=== PATIENT | female | born 1980 | race African-American/Black ===

== ENCOUNTER 2017-08-15 09:40 | Emergency (ER) | payer OTHER | END 2017-08-15 10:58 | disposition home or self-care (01) | LOC: M ED 09:40 | DX: J06.9 Acute upper respiratory infection, unspecified (principal); B34.9 Viral infection, unspecified | CPT/HCPCS: 87880 ==

== ENCOUNTER → 2019-10-02 | Outpatient (CLI) | payer OTHER ==
[~2019-10-02] MED LIST: FLON1SPR; MOBI15TA PO; MUCI600T37 PO; RITA20TA PO; SUDA30TA8 PO; ZANA2CAP PO
--- NOTE | 2019-10-02 14:13 | REPMRS ---
Patient History The patient states she had a clinical breast exam in 07/2019. No known family history of cancer. Taking hormonal contraceptives for 3 months. Digital Woman Screen Mammo: October 02, 2019 - Exam #: [id number] Bilateral CC and MLO view(s) were taken. Technologist: Cayla Villanueva, Technologist No prior studies available for comparison. FINDINGS: The breast tissue is heterogeneously dense. This may lower the sensitivity of mammography. There is no evidence of dominant mass, architectural distortion, or grouped microcalcification typical of malignancy. Assessment: BI-RADS/ACR category 1 mammogram. Negative Mammogram. Recommendation Routine screening mammogram of both breasts in 1 year (for women over age 40). This patient's Lifetime Breast Cancer RIsk is estimated at 8.5 %. This mammogram was interpreted with the aid of an FDA-approved computer-aided dectection system. Electronically Signed By: Alexandre Lion MD 10/02/19 [id number]
== END ==
LOC: M WHC 13:00
PROVIDERS: ATTEND Family Medicine
DX: Z12.31 Encounter for screening mammogram for malignant neoplasm of breast (principal)

== ENCOUNTER 2020-07-20 11:42 | Day surgery (SDC) | payer OTHER ==
[~2020-07-20] VITALS: Ht 170.2 cm; Wt 81.2 kg
[~2020-07-20 11:42] MED LIST changes: +AMIT50TA PO; +ESCI10TA2 PO; +HYDR-4570 PO; +MAGN250T7 PO; +MECL1TAB31 PO; +NOXI1TAB PO; +NS 1,000 ML IV ONE; +OMEP-221; +PRAZ1CAP PO; +RIBO400T PO; +RITA5TAB PO
[2020-07-20] MEDS ORDERED: LIDOCAINE 2% 100MG/5ML SDV (FOR ANES.) As Ordered ONE (12:31)
[2020-07-20] MEDS ORDERED: propofoL 200 MG/20 ML VIAL As Ordered ONE (12:31)
[2020-07-20] MEDS ORDERED: fentaNYL 100 MCG/2 ML INJECTION (J3010) As Ordered ONE (13:02)
--- NOTE | 2020-07-20 13:25 | ROOR ---
Patient Name: Dacia Willett Procedure Date: 07/20/2020 1:08 PM Date of : 1980 Age: 40 Room: [facility] Gender: Female Note Status: Finalized Procedure: Upper Endoscopy + Biopsies Indications: Heartburn, Failure to respond to medical treatment, Exclusion of Andrews's esophagus Providers: Pineda Heller MD Referring MD: JOAQUIN NUÑEZ MD Requesting Provider: Medicines: Monitored Anesthesia Care Complications: No immediate complications. Procedure: Pre-Anesthesia Assessment: - The heart rate, respiratory rate, oxygen saturations, blood pressure, adequacy of pulmonary ventilation, and response to care were monitored throughout the procedure. The Endoscope was introduced through the mouth, and advanced to the second part of duodenum. The upper GI endoscopy was accomplished without difficulty. The patient tolerated the procedure well. Findings: The Z-line was variable and was found 40 cm from the incisors. Multiple biopsies were obtained with cold forceps for evaluation to rule out Andrews's Esophagus randomly at the gastroesophageal junction. No other significant abnormalities were identified in a careful examination of the stomach. The exam of the duodenum was otherwise normal. Impression: - Z-line variable, 40 cm from the incisors. - Multiple biopsies were obtained at the gastroesophageal junction. - The examination was otherwise normal. Recommendation: - Patient has a contact number available for emergencies. The signs and symptoms of potential delayed complications were discussed with the patient. Return to normal activities tomorrow. Written discharge instructions were provided to the patient. - High fiber diet. - Discharge patient to home. - Follow an antireflux regimen. - Continue present medications. - Await pathology results. - Telephone GI clinic for pathology results in 1 week. - Return to referring physician. - The findings and recommendations were discussed with the patient. Procedure Code(s): --- Professional --- 68172, Esophagogastroduodenoscopy, flexible, transoral; with biopsy, single or multiple Diagnosis Code(s): --- Professional --- K22.8, Other specified diseases of esophagus R12, Heartburn CPT copyright 2019 [employer]. All rights reserved. The codes documented in this report are preliminary and upon certified professional coder review may be revised to meet current compliance requirements. Pineda Heller MD Pineda Heller MD 07/20/2020 1:24:47 PM Electronically signed by Pineda Heller MD Number of Addenda: 0 Note Initiated On: 07/20/2020 1:08 PM Estimated Blood Loss: Estimated blood loss: none.
[2020-07-20 13:45] VITALS: BP 144/93
== END 2020-07-20 14:00 | disposition home or self-care (01) ==
LOC: M OPP 11:42
PROVIDERS: ATTEND Internal Medicine Gastroenterology
DX: K22.8 Other specified diseases of esophagus (principal); R12 Heartburn; K21.9 Gastro-esophageal reflux disease without esophagitis; G47.30 Sleep apnea, unspecified; Z79.899 Other long term (current) drug therapy
CPT/HCPCS: 43239; 88305; J3010

== ENCOUNTER → 2021-02-19 | Outpatient (CLI) | payer OTHER ==
[~2021-02-19] MED LIST changes: +ESCI10TA16 PO; -ESCI10TA2 PO; -NS 1,000 ML IV ONE; -OMEP-221; +OMEP40CA5
== END ==
LOC: M WHC 13:56
PROVIDERS: ATTEND Physician Assistant
DX: N63.22 Unspecified lump in the left breast, upper inner quadrant (principal)
CPT/HCPCS: 76642; 77065; G0279

== ENCOUNTER → 2021-12-16 | Outpatient (CLI) | payer OTHER | LOC: M RAD 08:37 | PROVIDERS: ATTEND Physician Assistant | DX: M25.531 Pain in right wrist (principal) ==

== ENCOUNTER → 2022-02-03 | Outpatient (REF) | LOC: M PLAIMG 11:12 | PROVIDERS: ATTEND Internal Medicine | DX: R52 Pain, unspecified (principal); R06.02 Shortness of breath ==

== ENCOUNTER → 2022-03-03 | Outpatient (CLI) | payer OTHER | LOC: M WHC 09:55 | PROVIDERS: ATTEND Obstetrics & Gynecology | DX: Z12.31 Encounter for screening mammogram for malignant neoplasm of breast (principal) ==